=== PATIENT | female | born 1985 | race Caucasian/White ===

== ENCOUNTER 2019-02-26 01:38 | Emergency (ER) | payer SELFPAY ==
[~2019-02-26] VITALS: Ht 154.9 cm; Wt 86.2 kg
[2019-02-26 02:35] LABS: Basophils # (auto) 0.1 uL; Basophils % (auto) 1.2 % (0.0-2.0); Eosinophils # (auto) 0.1 uL; Eosinophils % (auto) 1.9 % (0.0-7.0); Hemoglobin 14.1 g/dL (12.2-16.2); Monocytes # (auto) 0.4 uL; White Blood Cell 6.4 10^3/uL (4.4-10.8)
[2019-02-26 02:37] LABS: Hematocrit 39.1 % (36.0-46.0); Lymphocytes # (auto) 2.3 uL; Lymphocytes % (auto) 35.7 % (10.0-50.0); Mean Corpuscular Hemoglobin 29.4 pg (28.0-32.0); Mean Corpuscular Volume 81.8 fL (80.0-100.0); Monocytes % (auto) 5.9 % (0.0-12.0); Neutrophils # (auto) 3.5 uL; Neutrophils % (auto) 55.3 % (37.0-80.0); Nucleated Red Blood Cells % 0.3 %; Platelet Count (auto) 254 10^3/uL (140-450); Red Blood Cells 4.78 10^6/uL (4.0-5.20); Red Cell Distribution Width 14.4 % (11.8-14.3)
[2019-02-26 02:39] LABS: Urine Bacteria FEW /hpf (None Seen); Urine Blood Negative /uL (Negative); Urine Mucus FEW (None Seen); Urine Specific Gravity 1.018 (1.001-1.035); Urine WBC 2 /hpf (0 - 5)
[2019-02-26 02:52] LABS: INR 1.03 (0.9-1.15); Partial Thromboplastin Time 26.5 sec (23.64-32.05)
[2019-02-26 02:53] LABS: Alanine Aminotransferase 28 U/L (13-56); Anion Gap 7 (5-15); Aspartate Aminotransferase 11 U/L (15-37); BUN/Creatinine Ratio 17.4; Blood Urea Nitrogen 12 mg/dL (7-18); Calcium 8.5 mg/dL (8.5-10.1); Carbon Dioxide 23 mmol/L (21-32); Chloride 111 mmol/L (98-107); GFR African American 126 mL/min; GFR Non-African American 104 mL/min; Glucose 109 mg/dL (74-106); Potassium 3.7 mmol/L (3.5-5.1); Sodium 141 mmol/L (136-145)
[2019-02-26 02:58] LABS: Alkaline Phosphatase 76 U/L (45-117)
[2019-02-26 05:30] VITALS: BP 108/72
== END 2019-02-26 06:51 | disposition home or self-care (01) ==
LOC: ER 01:39
DX: F41.9 Anxiety disorder, unspecified (principal)
CPT/HCPCS: 36415; 71045; 80053; 81001; 83735; 84484; 85025; 85379; 85610; 85730; 93005

== ENCOUNTER 2021-03-05 15:49 | Inpatient (IN) | payer OTHER ==
[~2021-03-05] VITALS: Ht 154.9 cm; Wt 109.9 kg
[2021-03-05 18:07] LABS: Eosinophils # (auto) 0 10 ^3/uL (0-0.8); Hemoglobin 12.7 g/dL (12.2-16.2); White Blood Cell 3.4 10^3/uL (4.4-10.8)
[2021-03-05 18:09] LABS: Basophils # (auto) 0 10 ^3/uL (0-0.2); Basophils % (auto) 0.3 % (0.0-2.0); Hematocrit 35.6 % (36.0-46.0); Lymphocytes # (auto) 0.6 10 ^3/uL (0.4-5.4); Lymphocytes % (auto) 17.6 % (10.0-50.0); Mean Corpuscular Hemoglobin 27.1 pg (28.0-32.0); Mean Corpuscular Hgb Conc. 35.5 g/dL (32.0-36.0); Mean Corpuscular Volume 76.1 fL (80.0-100.0); Monocytes # (auto) 0.3 10 ^3/uL (0-1.3); Monocytes % (auto) 7.6 % (0.0-12.0); Neutrophils # (auto) 2.5 10 ^3/uL (1.6-8.6); Neutrophils % (auto) 74.5 % (37.0-80.0); Nucleated Red Blood Cells % 0.4 %; Red Blood Cells 4.68 10^6/uL (4.0-5.20); Red Cell Distribution Width 14.7 % (11.8-14.3)
[2021-03-05 18:24] LABS: Albumin 3.1 g/dL (3.4-5.0); Calcium 7.9 mg/dL (8.5-10.1)
[2021-03-05 18:30] LABS: BUN/Creatinine Ratio 10.7; Bilirubin, Total 1.4 mg/dL (0.2-1.0); Total Protein 6.8 g/dL (6.4-8.2)
[2021-03-05] MEDS ORDERED: POTASSIUM CHL 20 Meq TABLET PO ONE (19:15)
[2021-03-05] MEDS ORDERED: AZITHROMYCIN 500MG/ 250ML 250 ML IV ONE (20:15)
[2021-03-05] MEDS ORDERED: DexAMETHasone SOD PHOS 10MG/1ML VIAL INJ IV ONE (20:15)
[2021-03-05] MEDS ORDERED: cefTRIAXone 1GM/50ML D5W 50 ML IV ONE (20:15)
[2021-03-05] MEDS ORDERED: HYDROcodone-ACET 5/325MG TAB PO PRN (21:30)
[2021-03-05] MEDS ORDERED: ACETAMINOPHEN 500 MG TAB PO PRN (21:30)
[2021-03-05] MEDS ORDERED: SODIUM CHLORIDE 0.9% 1,000 ML IV ONE (21:30)
[2021-03-05] MEDS ORDERED: ONDANSETRON HCL 4 MG/2 ML VIAL IV PRN (21:30)
[2021-03-05 22:02] LABS: Urine Bacteria NONE SEEN /hpf (None Seen); Urine Blood Negative /uL (Negative); Urine Mucus FEW (None Seen); Urine Specific Gravity 1.027 (1.001-1.035); Urine WBC 8 /hpf (0 - 5)
[2021-03-05] MEDS: FAMOTIDINE (10MG/ML) 2ML VL IV SCH (22:31)
[2021-03-05] MEDS: ENOXAPARIN SOD 40 MG/0.4 ML SYRINGE SC SCH (22:32)
[2021-03-05] MEDS: SODIUM CHLOR 0.9% PF (SALINE LOCK) 10ML VIAL/SYR IV SCH (22:32)
[2021-03-05] MEDS ORDERED: NITROGLYCERIN 0.4 MG SL TAB SL PRN (22:45)
[2021-03-06] MEDS: BUDESONIDE (INHALATION) 180 MCG IH IN SCH ×3 (00:16→18:56)
[2021-03-06] MEDS: guaiFENesin-DM 100/10mg/5ml SYR PO PRN (04:11)
[2021-03-06 04:37] VITALS: BP 109/58
[2021-03-06] MEDS: SODIUM CHLOR 0.9% PF (SALINE LOCK) 10ML VIAL/SYR IV SCH ×3 (05:44→22:01)
[2021-03-06 07:19] LABS: Basophils # (auto) 0 10 ^3/uL (0-0.2); Eosinophils # (auto) 0 10 ^3/uL (0-0.8); Hemoglobin 11.6 g/dL (12.2-16.2); Lymphocytes # (auto) 0.4 10 ^3/uL (0.4-5.4); Monocytes # (auto) 0.2 10 ^3/uL (0-1.3)
[2021-03-06 07:21] LABS: Basophils % (auto) 0.3 % (0.0-2.0); Hematocrit 32.5 % (36.0-46.0); Lymphocytes % (auto) 23.2 % (10.0-50.0); Mean Corpuscular Hgb Conc. 35.7 g/dL (32.0-36.0); Mean Corpuscular Volume 75.4 fL (80.0-100.0); Monocytes % (auto) 10.5 % (0.0-12.0); Neutrophils # (auto) 1.3 10 ^3/uL (1.6-8.6); Nucleated Red Blood Cells % 0.1 %; Red Cell Distribution Width 14.4 % (11.8-14.3)
[2021-03-06 07:24] LABS: Albumin 2.9 g/dL (3.4-5.0); Potassium 3.8 mmol/L (3.5-5.1)
[2021-03-06 07:31] LABS: BUN/Creatinine Ratio 14.3; Bilirubin, Total 1.1 mg/dL (0.2-1.0); Total Protein 6.4 g/dL (6.4-8.2)
[2021-03-06 07:33] LABS: White Blood Cell 1.9 10^3/uL (4.4-10.8)
[2021-03-06 09:00] VITALS: BP 128/77
[2021-03-06] MEDS: DexAMETHasone SOD PHOS 10MG/1ML VIAL INJ IV SCH (09:34)
[2021-03-06] MEDS: FAMOTIDINE (10MG/ML) 2ML VL IV SCH ×2 (09:34→22:01)
[2021-03-06] MEDS: ENOXAPARIN SOD 40 MG/0.4 ML SYRINGE SC SCH ×2 (09:34→22:01)
[2021-03-06] MEDS: CHOLECALCIFEROL (VITD3) 2,000 UNIT CAP/TAB PO SCH (09:35)
[2021-03-06] MEDS: ASPirin 81 mg TAB PO SCH (09:35)
[2021-03-06] MEDS: MULTIPLE VITAMIN TAB PO SCH (09:35)
[2021-03-06] MEDS: ASCORBIC ACID 1,000 MG TAB PO SCH (09:35)
[2021-03-06] MEDS: ZINC SULFATE 220mg CAP or TAB PO SCH (09:35)
[2021-03-06] MEDS: cefTRIAXone 1GM/50ML D5W 50 ML IV SCH (09:36)
[2021-03-06] MEDS: ALBUTEROL SULF HFA 90MCG INH 200DOSE IN PRN ×2 (10:26→19:44)
[2021-03-06] MEDS: AZITHROMYCIN 500MG/ 250ML 250 ML IV SCH (10:40)
[2021-03-06 13:14] VITALS: BP 128/77
[2021-03-06 14:15] VITALS: BP 111/62
[2021-03-06 16:38] VITALS: BP 98/62
[2021-03-06 22:11] VITALS: BP 118/67
[2021-03-07] MEDS: guaiFENesin-DM 100/10mg/5ml SYR PO PRN (03:06)
[2021-03-07 05:28] VITALS: BP 128/69
[2021-03-07] MEDS: BUDESONIDE (INHALATION) 180 MCG IH IN SCH ×2 (05:58→22:39)
[2021-03-07] MEDS: ALBUTEROL SULF HFA 90MCG INH 200DOSE IN PRN ×2 (05:58→22:39)
[2021-03-07] MEDS: SODIUM CHLOR 0.9% PF (SALINE LOCK) 10ML VIAL/SYR IV SCH ×3 (06:00→21:44)
[2021-03-07 08:30] VITALS: BP 112/63
[2021-03-07] MEDS: cefTRIAXone 1GM/50ML D5W 50 ML IV SCH (09:04)
[2021-03-07] MEDS: ASCORBIC ACID 1,000 MG TAB PO SCH (09:05)
[2021-03-07] MEDS: FAMOTIDINE (10MG/ML) 2ML VL IV SCH ×2 (09:05→21:44)
[2021-03-07] MEDS: DexAMETHasone SOD PHOS 10MG/1ML VIAL INJ IV SCH (09:05)
[2021-03-07] MEDS: ENOXAPARIN SOD 40 MG/0.4 ML SYRINGE SC SCH ×2 (09:06→21:44)
[2021-03-07] MEDS: CHOLECALCIFEROL (VITD3) 2,000 UNIT CAP/TAB PO SCH (09:06)
[2021-03-07] MEDS: ZINC SULFATE 220mg CAP or TAB PO SCH (09:06)
[2021-03-07] MEDS: ASPirin 81 mg TAB PO SCH (09:06)
[2021-03-07] MEDS: MULTIPLE VITAMIN TAB PO SCH (09:06)
[2021-03-07] MEDS ORDERED: FUROSEMIDE 20 MG/2 ML VIAL IV ONE (10:15)
[2021-03-07] MEDS: AZITHROMYCIN 500MG/ 250ML 250 ML IV SCH (10:50)
[2021-03-07 13:30] VITALS: BP 116/66
[2021-03-07 16:05] LABS: Albumin 2.9 g/dL (3.4-5.0); Calcium 7.8 mg/dL (8.5-10.1); Potassium 3.7 mmol/L (3.5-5.1)
[2021-03-07 16:08] LABS: BUN/Creatinine Ratio 12.5; Bilirubin, Total 1.2 mg/dL (0.2-1.0)
[2021-03-07 16:30] VITALS: BP 128/79
[2021-03-07 19:10] LABS: Basophils # (auto) 0 10 ^3/uL (0-0.2); Basophils % (auto) 0.1 % (0.0-2.0); Eosinophils # (auto) 0 10 ^3/uL (0-0.8); Lymphocytes # (auto) 0.4 10 ^3/uL (0.4-5.4); Lymphocytes % (auto) 5.7 % (10.0-50.0); Monocytes # (auto) 0.4 10 ^3/uL (0-1.3); Neutrophils # (auto) 5.7 10 ^3/uL (1.6-8.6)
[2021-03-07 19:12] LABS: Hematocrit 34.3 % (36.0-46.0); Mean Corpuscular Hemoglobin 26.6 pg (28.0-32.0); Mean Corpuscular Hgb Conc. 34.9 g/dL (32.0-36.0); Mean Corpuscular Volume 76.3 fL (80.0-100.0); Monocytes % (auto) 6.1 % (0.0-12.0); Neutrophils % (auto) 88.1 % (37.0-80.0); Nucleated Red Blood Cells % 0.1 %; Red Cell Distribution Width 14.3 % (11.8-14.3); White Blood Cell 6.5 10^3/uL (4.4-10.8)
[2021-03-07 22:00] VITALS: BP 123/76
[2021-03-08 05:30] VITALS: BP 119/82
[2021-03-08] MEDS: SODIUM CHLOR 0.9% PF (SALINE LOCK) 10ML VIAL/SYR IV SCH ×3 (05:41→21:21)
[2021-03-08] MEDS: BUDESONIDE (INHALATION) 180 MCG IH IN SCH ×2 (05:44→21:27)
[2021-03-08] MEDS: ALBUTEROL SULF HFA 90MCG INH 200DOSE IN PRN ×2 (05:44→22:48)
[2021-03-08 06:49] LABS: Basophils # (auto) 0 10 ^3/uL (0-0.2); Eosinophils # (auto) 0 10 ^3/uL (0-0.8); Neutrophils # (auto) 7.7 10 ^3/uL (1.6-8.6); Nucleated Red Blood Cells % 0.1 %; Potassium 3.7 mmol/L (3.5-5.1); White Blood Cell 8.6 10^3/uL (4.4-10.8)
[2021-03-08 06:55] LABS: Hematocrit 33.6 % (36.0-46.0); Hemoglobin 11.9 g/dL (12.2-16.2); Lymphocytes # (auto) 0.6 10 ^3/uL (0.4-5.4); Lymphocytes % (auto) 6.8 % (10.0-50.0); Mean Corpuscular Hgb Conc. 35.5 g/dL (32.0-36.0); Mean Corpuscular Volume 76.3 fL (80.0-100.0); Monocytes # (auto) 0.3 10 ^3/uL (0-1.3); Monocytes % (auto) 3.9 % (0.0-12.0); Neutrophils % (auto) 89.3 % (37.0-80.0); Red Cell Distribution Width 14.3 % (11.8-14.3)
[2021-03-08 07:02] LABS: Albumin 2.7 g/dL (3.4-5.0); BUN/Creatinine Ratio 13.6; Bilirubin, Total 1.6 mg/dL (0.2-1.0); Total Protein 5.9 g/dL (6.4-8.2)
[2021-03-08 09:00] VITALS: BP 124/66
[2021-03-08] MEDS: DexAMETHasone SOD PHOS 10MG/1ML VIAL INJ IV SCH (10:41)
[2021-03-08] MEDS: ASPirin 81 mg TAB PO SCH (10:41)
[2021-03-08] MEDS: FAMOTIDINE (10MG/ML) 2ML VL IV SCH ×2 (10:41→21:21)
[2021-03-08] MEDS: ASCORBIC ACID 1,000 MG TAB PO SCH (10:42)
[2021-03-08] MEDS: ENOXAPARIN SOD 40 MG/0.4 ML SYRINGE SC SCH ×2 (10:42→21:21)
[2021-03-08] MEDS: MULTIPLE VITAMIN TAB PO SCH (10:42)
[2021-03-08] MEDS: CHOLECALCIFEROL (VITD3) 2,000 UNIT CAP/TAB PO SCH (10:42)
[2021-03-08] MEDS: ZINC SULFATE 220mg CAP or TAB PO SCH (10:42)
[2021-03-08] MEDS ORDERED: REMDESIVIR PER PHARMACY 0 ML IV SCH (11:30)
[2021-03-08] MEDS ORDERED: AZITHROMYCIN 500MG/ 250ML 250 ML IV ONE (11:45)
[2021-03-08] MEDS ORDERED: cefTRIAXone 1GM/50ML D5W 50 ML IV ONE (11:45)
[2021-03-08 13:00] VITALS: BP 129/77
[2021-03-08] MEDS ORDERED: REMDESIVIR 200 MG in NS 210ml LOADING DOSE ADULT IV ONE (15:00)
[2021-03-08 17:00] VITALS: BP 128/71
[2021-03-08 22:03] VITALS: BP 121/74
[2021-03-09 05:00] VITALS: BP 138/74
[2021-03-09] MEDS: SODIUM CHLOR 0.9% PF (SALINE LOCK) 10ML VIAL/SYR IV SCH ×3 (05:57→21:42)
[2021-03-09 06:23] LABS: Basophils # (auto) 0 10 ^3/uL (0-0.2); Basophils % (auto) 0.1 % (0.0-2.0); Eosinophils # (auto) 0 10 ^3/uL (0-0.8); Hemoglobin 11.2 g/dL (12.2-16.2); Lymphocytes # (auto) 0.8 10 ^3/uL (0.4-5.4); Monocytes # (auto) 0.4 10 ^3/uL (0-1.3)
[2021-03-09 06:28] LABS: Potassium 3.7 mmol/L (3.5-5.1)
[2021-03-09 06:30] LABS: Hematocrit 32.4 % (36.0-46.0); Lymphocytes % (auto) 12.7 % (10.0-50.0); Mean Corpuscular Hemoglobin 26.9 pg (28.0-32.0); Mean Corpuscular Hgb Conc. 34.7 g/dL (32.0-36.0); Mean Corpuscular Volume 77.5 fL (80.0-100.0); Monocytes % (auto) 6.2 % (0.0-12.0); Neutrophils # (auto) 5.2 10 ^3/uL (1.6-8.6); Nucleated Red Blood Cells % 0.1 %; Red Blood Cells 4.17 10^6/uL (4.0-5.20); Red Cell Distribution Width 14.3 % (11.8-14.3); White Blood Cell 6.4 10^3/uL (4.4-10.8)
[2021-03-09 06:46] LABS: Albumin 2.5 g/dL (3.4-5.0); BUN/Creatinine Ratio 18.2; Bilirubin, Total 1.2 mg/dL (0.2-1.0); Calcium 7.9 mg/dL (8.5-10.1); Total Protein 5.5 g/dL (6.4-8.2)
[2021-03-09] MEDS: BUDESONIDE (INHALATION) 180 MCG IH IN SCH ×2 (08:33→18:46)
[2021-03-09] MEDS: ALBUTEROL SULF HFA 90MCG INH 200DOSE IN PRN ×2 (08:33→18:45)
[2021-03-09 09:00] VITALS: BP 137/64
[2021-03-09] MEDS: cefTRIAXone 1GM/50ML D5W 50 ML IV SCH (09:50)
[2021-03-09] MEDS: DexAMETHasone SOD PHOS 10MG/1ML VIAL INJ IV SCH (09:51)
[2021-03-09] MEDS: MULTIPLE VITAMIN TAB PO SCH (09:51)
[2021-03-09] MEDS: ZINC SULFATE 220mg CAP or TAB PO SCH (09:51)
[2021-03-09] MEDS: CHOLECALCIFEROL (VITD3) 2,000 UNIT CAP/TAB PO SCH (09:51)
[2021-03-09] MEDS: ASCORBIC ACID 1,000 MG TAB PO SCH (09:52)
[2021-03-09] MEDS: FAMOTIDINE (10MG/ML) 2ML VL IV SCH ×2 (09:52→21:42)
[2021-03-09] MEDS: ENOXAPARIN SOD 40 MG/0.4 ML SYRINGE SC SCH ×2 (09:52→21:43)
[2021-03-09] MEDS ORDERED: FUROSEMIDE 20 MG/2 ML VIAL IV ONE (10:30)
[2021-03-09] MEDS ORDERED: POTASSIUM CHL 20 Meq TABLET PO ONE (10:30)
[2021-03-09] MEDS ORDERED: SALINE 0.65 % NASAL SPRAY 45ML BOTTLE EACHNOSTRI ONE (10:45)
[2021-03-09] MEDS: AZITHROMYCIN 500MG/ 250ML 250 ML IV SCH (13:27)
[2021-03-09 13:42] VITALS: BP 112/68
[2021-03-09] MEDS: SALINE 0.65 % NASAL SPRAY 45ML BOTTLE EACHNOSTRI SCH ×3 (13:56→21:42)
[2021-03-09] MEDS: REMDESIVIR 100mg 100 MG in SODIUM CHL 0.9% 230 ML IV SCH (15:47)
[2021-03-09 16:54] VITALS: BP 119/67
[2021-03-09] MEDS: DexAMETHasone SOD PHOS 4 MG/1ML SDV INJ IV SCH (21:42)
[2021-03-09 22:00] VITALS: BP 112/66
[2021-03-10 05:00] VITALS: BP 113/69
[2021-03-10] MEDS: SODIUM CHLOR 0.9% PF (SALINE LOCK) 10ML VIAL/SYR IV SCH ×3 (05:18→20:58)
[2021-03-10] MEDS: SALINE 0.65 % NASAL SPRAY 45ML BOTTLE EACHNOSTRI SCH ×4 (05:19→20:56)
[2021-03-10 07:02] LABS: Albumin 2.5 g/dL (3.4-5.0); Potassium 3.8 mmol/L (3.5-5.1)
[2021-03-10 07:05] LABS: BUN/Creatinine Ratio 33.3; Bilirubin, Total 1.1 mg/dL (0.2-1.0); Total Protein 5.4 g/dL (6.4-8.2)
[2021-03-10] MEDS: FAMOTIDINE (10MG/ML) 2ML VL IV SCH ×2 (08:38→20:58)
[2021-03-10] MEDS: DexAMETHasone SOD PHOS 4 MG/1ML SDV INJ IV SCH ×2 (08:39→20:58)
[2021-03-10] MEDS: AZITHROMYCIN 500MG/ 250ML 250 ML IV SCH (08:41)
[2021-03-10] MEDS: MULTIPLE VITAMIN TAB PO SCH (08:42)
[2021-03-10] MEDS: CHOLECALCIFEROL (VITD3) 2,000 UNIT CAP/TAB PO SCH (08:42)
[2021-03-10] MEDS: ZINC SULFATE 220mg CAP or TAB PO SCH (08:42)
[2021-03-10] MEDS: cefTRIAXone 1GM/50ML D5W 50 ML IV SCH (08:42)
[2021-03-10] MEDS: ENOXAPARIN SOD 40 MG/0.4 ML SYRINGE SC SCH ×2 (08:43→20:58)
[2021-03-10] MEDS: POTASSIUM CHL 20 Meq TABLET PO SCH (08:43)
[2021-03-10] MEDS: ASCORBIC ACID 1,000 MG TAB PO SCH (08:43)
[2021-03-10 09:00] VITALS: BP 119/81
[2021-03-10] MEDS ORDERED: FUROSEMIDE 20 MG/2 ML VIAL IV SCH (10:00)
[2021-03-10] MEDS ORDERED: FUROSEMIDE 20 MG/2 ML VIAL IV ONE (10:45)
[2021-03-10] MEDS: Ensure HIGH Protein Chocolate 8oz Bottle PO SCH ×2 (11:33→18:32)
[2021-03-10 13:00] VITALS: BP 136/78
[2021-03-10] MEDS: BUDESONIDE (INHALATION) 180 MCG IH IN SCH ×2 (15:21→21:49)
[2021-03-10] MEDS: ALBUTEROL SULF HFA 90MCG INH 200DOSE IN PRN ×2 (15:21→21:49)
[2021-03-10 17:00] VITALS: BP 135/67
[2021-03-10] MEDS: REMDESIVIR 100mg 100 MG in SODIUM CHL 0.9% 230 ML IV SCH (18:32)
[2021-03-10 22:00] VITALS: BP 119/68
[2021-03-11 05:00] VITALS: BP 113/73
[2021-03-11 06:03] LABS: Calcium 8.1 mg/dL (8.5-10.1); Potassium 4.4 mmol/L (3.5-5.1)
[2021-03-11 06:09] LABS: Albumin 2.5 g/dL (3.4-5.0); BUN/Creatinine Ratio 33.3; Total Protein 5.3 g/dL (6.4-8.2)
[2021-03-11] MEDS: BUDESONIDE (INHALATION) 180 MCG IH IN SCH ×2 (06:10→19:06)
[2021-03-11] MEDS: ALBUTEROL SULF HFA 90MCG INH 200DOSE IN PRN ×2 (06:10→20:53)
[2021-03-11] MEDS: SODIUM CHLOR 0.9% PF (SALINE LOCK) 10ML VIAL/SYR IV SCH ×3 (06:28→21:09)
[2021-03-11] MEDS: SALINE 0.65 % NASAL SPRAY 45ML BOTTLE EACHNOSTRI SCH ×4 (06:28→21:08)
[2021-03-11] MEDS: Ensure HIGH Protein Chocolate 8oz Bottle PO SCH ×3 (07:42→18:35)
[2021-03-11] MEDS: AZITHROMYCIN 500MG/ 250ML 250 ML IV SCH (08:21)
[2021-03-11] MEDS: cefTRIAXone 1GM/50ML D5W 50 ML IV SCH (08:22)
[2021-03-11] MEDS: ENOXAPARIN SOD 40 MG/0.4 ML SYRINGE SC SCH ×2 (08:22→21:09)
[2021-03-11] MEDS: CHOLECALCIFEROL (VITD3) 2,000 UNIT CAP/TAB PO SCH (08:31)
[2021-03-11] MEDS: ASCORBIC ACID 1,000 MG TAB PO SCH (08:31)
[2021-03-11] MEDS: MULTIPLE VITAMIN TAB PO SCH (08:31)
[2021-03-11] MEDS: FUROSEMIDE 40 MG/4 ML VIAL IV SCH (08:31)
[2021-03-11] MEDS: ZINC SULFATE 220mg CAP or TAB PO SCH (08:31)
[2021-03-11] MEDS: FAMOTIDINE (10MG/ML) 2ML VL IV SCH ×2 (08:32→21:09)
[2021-03-11] MEDS: POTASSIUM CHL 20 Meq TABLET PO SCH (08:32)
[2021-03-11] MEDS: DexAMETHasone SOD PHOS 4 MG/1ML SDV INJ IV SCH ×2 (08:32→21:08)
[2021-03-11 08:40] VITALS: BP 125/77
[2021-03-11 13:00] VITALS: BP_SYST 106; BP_SYST 123; BP_DIAS 65; BP_DIAS 75
[2021-03-11] MEDS: REMDESIVIR 100mg 100 MG in SODIUM CHL 0.9% 230 ML IV SCH (15:33)
[2021-03-11 17:00] VITALS: BP 106/75
[2021-03-11 22:00] VITALS: BP 111/63
[2021-03-12 05:00] VITALS: BP 113/56
[2021-03-12] MEDS: SALINE 0.65 % NASAL SPRAY 45ML BOTTLE EACHNOSTRI SCH ×4 (06:04→21:26)
[2021-03-12] MEDS: SODIUM CHLOR 0.9% PF (SALINE LOCK) 10ML VIAL/SYR IV SCH ×3 (06:04→21:26)
[2021-03-12 06:11] LABS: Albumin 2.5 g/dL (3.4-5.0); BUN/Creatinine Ratio 21.9; Potassium 4.8 mmol/L (3.5-5.1)
[2021-03-12 06:21] LABS: Bilirubin, Total 0.9 mg/dL (0.2-1.0); Total Protein 5.4 g/dL (6.4-8.2)
[2021-03-12 09:00] VITALS: BP 118/67
[2021-03-12] MEDS: BUDESONIDE (INHALATION) 180 MCG IH IN SCH ×2 (09:05→19:36)
[2021-03-12] MEDS: ALBUTEROL SULF HFA 90MCG INH 200DOSE IN PRN ×2 (09:05→19:36)
[2021-03-12] MEDS: cefTRIAXone 1GM/50ML D5W 50 ML IV SCH (10:03)
[2021-03-12] MEDS: Ensure HIGH Protein Chocolate 8oz Bottle PO SCH ×3 (10:03→17:55)
[2021-03-12] MEDS: FUROSEMIDE 40 MG/4 ML VIAL IV SCH (10:04)
[2021-03-12] MEDS: DexAMETHasone SOD PHOS 4 MG/1ML SDV INJ IV SCH ×2 (10:04→21:26)
[2021-03-12] MEDS: POTASSIUM CHL 20 Meq TABLET PO SCH (10:05)
[2021-03-12] MEDS: MULTIPLE VITAMIN TAB PO SCH (10:05)
[2021-03-12] MEDS: ZINC SULFATE 220mg CAP or TAB PO SCH (10:05)
[2021-03-12] MEDS: FAMOTIDINE (10MG/ML) 2ML VL IV SCH (10:05)
[2021-03-12] MEDS: ASCORBIC ACID 1,000 MG TAB PO SCH (10:06)
[2021-03-12] MEDS: CHOLECALCIFEROL (VITD3) 2,000 UNIT CAP/TAB PO SCH (10:06)
[2021-03-12] MEDS: ENOXAPARIN SOD 40 MG/0.4 ML SYRINGE SC SCH ×2 (10:06→21:27)
[2021-03-12] MEDS: AZITHROMYCIN 500MG/ 250ML 250 ML IV SCH (11:34)
[2021-03-12 13:00] VITALS: BP 114/67
[2021-03-12] MEDS: REMDESIVIR 100mg 100 MG in SODIUM CHL 0.9% 230 ML IV SCH (15:00)
[2021-03-12 16:51] VITALS: BP 107/68
[2021-03-12] MEDS: FAMOTIDINE 20 MG TAB PO SCH (21:26)
[2021-03-12 22:00] VITALS: BP 122/60
[2021-03-13 05:00] VITALS: BP 127/68
[2021-03-13] MEDS: SODIUM CHLOR 0.9% PF (SALINE LOCK) 10ML VIAL/SYR IV SCH ×3 (06:45→22:16)
[2021-03-13] MEDS: BUDESONIDE (INHALATION) 180 MCG IH IN SCH ×2 (06:45→22:23)
[2021-03-13] MEDS: ALBUTEROL SULF HFA 90MCG INH 200DOSE IN PRN ×2 (06:45→22:23)
[2021-03-13] MEDS: SALINE 0.65 % NASAL SPRAY 45ML BOTTLE EACHNOSTRI SCH ×4 (06:45→22:15)
[2021-03-13] MEDS: Ensure HIGH Protein Chocolate 8oz Bottle PO SCH ×3 (08:00→18:00)
[2021-03-13 08:48] VITALS: BP 109/63
[2021-03-13] MEDS: cefTRIAXone 1GM/50ML D5W 50 ML IV SCH (09:00)
[2021-03-13] MEDS: ZINC SULFATE 220mg CAP or TAB PO SCH (10:00)
[2021-03-13] MEDS: CHOLECALCIFEROL (VITD3) 2,000 UNIT CAP/TAB PO SCH (10:00)
[2021-03-13] MEDS: FAMOTIDINE 20 MG TAB PO SCH ×2 (10:00→22:16)
[2021-03-13] MEDS: AZITHROMYCIN 500MG/ 250ML 250 ML IV SCH (10:00)
[2021-03-13] MEDS: POTASSIUM CHL 20 Meq TABLET PO SCH (10:00)
[2021-03-13] MEDS: MULTIPLE VITAMIN TAB PO SCH (10:00)
[2021-03-13] MEDS: ENOXAPARIN SOD 40 MG/0.4 ML SYRINGE SC SCH ×2 (10:00→22:16)
[2021-03-13] MEDS: FUROSEMIDE 40 MG/4 ML VIAL IV SCH (10:00)
[2021-03-13] MEDS: ASCORBIC ACID 1,000 MG TAB PO SCH (10:00)
[2021-03-13] MEDS: DexAMETHasone SOD PHOS 4 MG/1ML SDV INJ IV SCH ×2 (10:00→22:16)
[2021-03-13 12:54] VITALS: BP 96/61
[2021-03-13 17:00] VITALS: BP 108/72
[2021-03-13 22:00] VITALS: BP 103/58
[2021-03-14 04:52] VITALS: BP 108/69
[2021-03-14] MEDS: SALINE 0.65 % NASAL SPRAY 45ML BOTTLE EACHNOSTRI SCH ×4 (05:37→21:09)
[2021-03-14] MEDS: SODIUM CHLOR 0.9% PF (SALINE LOCK) 10ML VIAL/SYR IV SCH ×3 (05:37→21:00)
[2021-03-14] MEDS: ALBUTEROL SULF HFA 90MCG INH 200DOSE IN PRN (06:45)
[2021-03-14] MEDS: BUDESONIDE (INHALATION) 180 MCG IH IN SCH ×2 (06:45→21:33)
[2021-03-14] MEDS: Ensure HIGH Protein Chocolate 8oz Bottle PO SCH ×3 (08:00→18:00)
[2021-03-14 09:04] VITALS: BP 106/64
[2021-03-14] MEDS: cefTRIAXone 1GM/50ML D5W 50 ML IV SCH (09:38)
[2021-03-14] MEDS: DexAMETHasone SOD PHOS 4 MG/1ML SDV INJ IV SCH ×2 (09:38→20:59)
[2021-03-14] MEDS: MULTIPLE VITAMIN TAB PO SCH (09:39)
[2021-03-14] MEDS: ASCORBIC ACID 1,000 MG TAB PO SCH (09:39)
[2021-03-14] MEDS: ZINC SULFATE 220mg CAP or TAB PO SCH (09:39)
[2021-03-14] MEDS: FUROSEMIDE 40 MG/4 ML VIAL IV SCH (09:39)
[2021-03-14] MEDS: FAMOTIDINE 20 MG TAB PO SCH ×2 (09:39→20:59)
[2021-03-14] MEDS: POTASSIUM CHL 20 Meq TABLET PO SCH (09:39)
[2021-03-14] MEDS: ENOXAPARIN SOD 40 MG/0.4 ML SYRINGE SC SCH ×3 (09:40→21:08)
[2021-03-14] MEDS: CHOLECALCIFEROL (VITD3) 2,000 UNIT CAP/TAB PO SCH (09:40)
[2021-03-14 12:47] VITALS: BP 109/67
[2021-03-14 17:04] VITALS: BP 99/70
[2021-03-14 23:00] VITALS: BP 124/73
[2021-03-15 05:00] VITALS: BP 105/69
[2021-03-15] MEDS: SODIUM CHLOR 0.9% PF (SALINE LOCK) 10ML VIAL/SYR IV SCH (05:52)
[2021-03-15] MEDS: SALINE 0.65 % NASAL SPRAY 45ML BOTTLE EACHNOSTRI SCH (05:52)
[2021-03-15] MEDS: BUDESONIDE (INHALATION) 180 MCG IH IN SCH (05:55)
[2021-03-15] MEDS: ALBUTEROL SULF HFA 90MCG INH 200DOSE IN PRN (05:55)
[2021-03-15 08:00] VITALS: BP 106/64
[2021-03-15] MEDS: Ensure HIGH Protein Chocolate 8oz Bottle PO SCH (08:00)
[2021-03-15 09:00] VITALS: BP 135/69
[2021-03-15] MEDS: cefTRIAXone 1GM/50ML D5W 50 ML IV SCH (09:18)
[2021-03-15] MEDS: DexAMETHasone SOD PHOS 4 MG/1ML SDV INJ IV SCH (09:19)
[2021-03-15] MEDS: FUROSEMIDE 40 MG/4 ML VIAL IV SCH (09:19)
[2021-03-15] MEDS: POTASSIUM CHL 20 Meq TABLET PO SCH (09:20)
[2021-03-15] MEDS: ASCORBIC ACID 1,000 MG TAB PO SCH (09:20)
[2021-03-15] MEDS: MULTIPLE VITAMIN TAB PO SCH (09:20)
[2021-03-15] MEDS: CHOLECALCIFEROL (VITD3) 2,000 UNIT CAP/TAB PO SCH (09:20)
[2021-03-15] MEDS: ZINC SULFATE 220mg CAP or TAB PO SCH (09:20)
[2021-03-15] MEDS: FAMOTIDINE 20 MG TAB PO SCH (09:20)
[2021-03-15] MEDS: ENOXAPARIN SOD 40 MG/0.4 ML SYRINGE SC SCH (09:21)
[2021-03-15 13:00] VITALS: BP 109/58
[2021-03-15 14:50] VITALS: BP 109/58
== END 2021-03-15 16:04 | disposition home or self-care (01) | DRG 871 ==
LOC: ER 15:49 → OVERFLOW 22:32 → EAST 03-06 08:09
PROVIDERS: ADMIT Nurse Practitioner Family; ATTEND Internal Medicine
PROC: XW033E5 Introduction of Remdesivir Anti-infective into Peripheral Vein, Percutaneous Approach, New Technology Group 5 (ICD-10-PCS; principal; 2021-03-08)
PROC: 5A0935A Assistance with Respiratory Ventilation, Less than 24 Consecutive Hours, High Flow/Velocity Cannula (ICD-10-PCS; 2021-03-09)
DX: A41.89 Other specified sepsis (principal); J12.82 Pneumonia due to coronavirus disease 2019; J96.01 Acute respiratory failure with hypoxia; U07.1 COVID-19; Z68.42 Body mass index [BMI] 45.0-49.9, adult; D89.839 Cytokine release syndrome, grade unspecified; E66.01 Morbid (severe) obesity due to excess calories; R73.9 Hyperglycemia, unspecified; R74.01 Elevation of levels of liver transaminase levels; Z79.82 Long term (current) use of aspirin
CPT/HCPCS: 36415; 36600; 71045; 80053; 81001; 82728; 82805; 83036; 83605; 83615; 83735; 84484; 84702; 85025; 85379; 86141; 87040; 87426; 93005; 94640; 96365; 96366; 96368; 96375; G0378; J0696; J1100; J3490

== ENCOUNTER 2021-03-23 11:32 | Emergency (ER) | payer OTHER ==
[~2021-03-23] VITALS: Ht 154.9 cm; Wt 104.8 kg
[2021-03-23 13:43] LABS: Calcium 8.8 mg/dL (8.5-10.1); Potassium 3.9 mmol/L (3.5-5.1)
[2021-03-23] MEDS ORDERED: IOHEXOL 350 MG/ML 100ML IJ ONE ×2 (14:11→15:32)
[2021-03-23 16:20] VITALS: BP 106/71
== END 2021-03-23 16:24 | disposition home or self-care (01) ==
LOC: ER 11:32
DX: U07.1 COVID-19 (principal); Z88.5 Allergy status to narcotic agent
CPT/HCPCS: 36415; 71045; 71275; 80048; 93005; 99285; Q9967